=== PATIENT | female | born 1950 ===

== ENCOUNTER → 2022-07-04 13:07 | Outpatient (BNVA) | payer OTHER, SELFPAY | PROVIDERS: PCP Internal Medicine; Visit Provider Nurse Practitioner Family | DX: R41.3 Other amnesia (principal) | CPT/HCPCS: 99202 ==

== ENCOUNTER 2023-01-02 14:06 | Outpatient (AMB) | payer OTHER, SELFPAY ==
[2023-01-02 14:07] VITALS: BP 134/80; PULSE 86; O2SAT 100; BMI 25.7
--- NOTE | 2023-01-02 14:07 | A.OFFVIS_ITS ---
Intake Vital Signs 01/02/23 14:07 Height 4 ft 11 in Weight 127 lb 2 oz BMI 25.7 BP 134/80 Blood Pressure Location Rt brachial Position Sitting Pulse 86 Pulse Source Pulse Oximeter Pulse Oximetry (%) 100 Oxygen Delivery Method Room Air Intake Visit Reasons: 6M F/U White matter, Dementia, Anhydrosis-Confirm Intake Note: Pt presents as a 6 month f/u white matter, dementia, anhydrosis. Director Distribution Required: No Allergies loratadine [From Claritin] Allergy (Unknown, Verified 01/02/23 14:11) Rash HPI HPI Comments History of Present Illness Details 72 y/o female patient presents for follow up of cognitive impairment. Pt reports that she called for a repeat neuropsychology evaluation, and she is in waiting list and will take 7 month to schedule. 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 She still forgets dates and names but remember quicker than before. She sleeps well, and mood is more stable, not really depressed. She sees her psychiatrist q 3months. Pt currently on buspirone 15 mg BID. She can do ALDs independently, and also has housework helps. She takes care of bills and can drive. Pt report tinnnitus and followed by ENT. [facility] Medical History Carpal tunnel syndrome of right wrist Surgical History H/O cervical discectomy H/O colonoscopy H/O tubal ligation History of colposcopy History of laparoscopic-assisted vaginal hysterectomy Family History Mother HTN (hypertension) Father Stroke Family/Other Asthma Family/Other Seasonal allergies Daughter Seasonal allergies Daughter Mast cell activation Son Seasonal allergies Social History (Updated 01/02/23 @ 14:15 by Sridevi Brandt CMA) Alcohol intake: current Alcohol intake frequency: holidays/special occasions only Patient Tobacco Use Status: Never used Tobacco Review of Systems Const All systems reviewed & are unremarkable except as noted in HPI and below ENT Reports Normal hearing present Neuro Reports Normal hearing present Physical Exam Vital Signs: Last Vital Signs Pulse 86 01/02/23 14:07 BP 134/80 01/02/23 14:07 Pulse Ox 100 01/02/23 14:07 Oxygen Delivery Method Room Air 01/02/23 14:07 BMI result Body Mass Index 25.7 Const General: cooperative and anxious Nutritional Appearance: average body habitus Orientation/consciousness: patient oriented x3 Neck Neck: Yes full ROM and Yes supple Resp Effort & Inspection: normal respiratory effort and able to speak in complete sentences Neuro Other: intermittent eye brow movement. General: patient oriented x3 Cranial nerves: Yes Bilaterally intact EOM present, Yes Normal facial strength present, Yes Midline tongue present, Yes Symmetric palate elevation present, Yes Normal hearing present, Yes Ability to bilaterally rotate head present and Yes Ability to bilaterally elevate shoulders present Cognition (Neuro): normal cognition Gait exam (Neuro): Antalgic gait present Motor exam (neuro): 5/5 motor strength present throughout, Pronator motor function not present and no tremor noted Psych Appearance: grossly normal Mental Status: mental status grossly normal Speech and movement: Normal speech and movement present and Clear speech present Affect: Anxious affect present Attitude: cooperative Assessment & Plan Assessment & Plan (1) Memory loss: Code(s): R41.3 - Other amnesia Plan Advised patient to undergo repeat neuropsychology evaluation to assess her cognitive function. Encouraged patient to increase cognitive and physical activity. Advised patient to have well balanced diet. See her psychiatrist regularly for her mood. Coding Level of Care Code Est Pt Level 3 (14579) Diagnoses Memory loss R41.3
== END 2023-01-02 14:32 | disposition home or self-care (01) ==
PROVIDERS: Visit Provider Nurse Practitioner Family
DX: R41.3 Other amnesia (principal)
CPT/HCPCS: 99213

== ENCOUNTER → 2023-01-02 14:06 | Outpatient (BNVA) | payer OTHER, SELFPAY | PROVIDERS: Visit Provider Nurse Practitioner Family | DX: R41.3 Other amnesia (principal) | CPT/HCPCS: 99212 ==

== ENCOUNTER 2024-05-05 14:24 | Outpatient (AMB) | payer OTHER, SELFPAY ==
--- NOTE | 2024-05-05 14:42 | MHC.OFFVIS ---
Vital Signs 05/05/24 14:44 Height 4 ft 11 in Weight 136 lb BMI 27.5 Intake Visit Reasons: 1yr f/u White matter/Dementia/Anhydrosis Intake Note: Patient presents for 1 year follow up. Allergies loratadine [From Claritin] Allergy (Unknown, Verified 05/05/24 14:44) Rash HPI Comments Details: 72 y/o female patient presents for follow up of cognitive impairment. Interval Medical history: 09/2023 Grand-daughter was shot and killed in [place]. Pt reports that neuropsychology evaluation, did not evaluate her for cognitive mental decline. She was referred for sweating, head the neck and underarms very little. MRI was completed. 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 She still forgets dates and names but remember quicker than before. She sleeps well, goes to bed at 11:30pm wakes up at 7am, goes to her adult day care program. Mood is stable, not really depressed, but feels very sad at times, has had a lot of family trauma and deaths. Speaks to her therapist [facility] every 2 weeks for anxiety. She sees her psychiatrist q 3months for medication. Pt currently on buspirone 15 mg BID. Lyrica for numbness bilaterally hands, and tremors, carpal tunnel. RLE numbness and tingling d/t sciatica. Lower back pain, L. side, cortisone shots and PT with Physiotrist, and canvas worker 18 sessions. Continues to have pain in the neck, R>L. She can do ADLs independently, and also has help with cleaning, laundry, groceries. She takes care of bills and can drive. Apr 2024, Cataract surgery both eyes, Dr. Carlisle. Pt report tinnnitus and followed by ENT. [facility] Medical History Carpal tunnel syndrome of right wrist Surgical History H/O tubal ligation History of laparoscopic-assisted vaginal hysterectomy H/O colonoscopy History of colposcopy H/O cervical discectomy Family History Mother HTN (hypertension) Father Stroke Family/Other Asthma Family/Other Seasonal allergies Daughter Seasonal allergies Daughter Mast cell activation Son Seasonal allergies Social History Alcohol intake: current Alcohol intake frequency: holidays/special occasions only Patient Tobacco Use Status: Never used Tobacco Review of Systems Const All systems reviewed & are unremarkable except as noted in HPI and below ENT Reports Normal hearing present Neuro Reports Normal hearing present Physical Exam Vital Signs: BMI result Body Mass Index 27.5 Const General: cooperative and anxious Nutritional Appearance: average body habitus Orientation/consciousness: patient oriented x3 Neck Neck: Yes full ROM and Yes supple Resp Effort & Inspection: normal respiratory effort and able to speak in complete sentences Neuro Other: intermittent eye brow movement. General: patient oriented x3 Cranial nerves: Yes Bilaterally intact EOM present, Yes Normal facial strength present, Yes Midline tongue present, Yes Symmetric palate elevation present, Yes Normal hearing present, Yes Ability to bilaterally rotate head present and Yes Ability to bilaterally elevate shoulders present Cognition (Neuro): normal cognition Gait exam (Neuro): Antalgic gait present Motor exam (neuro): 5/5 motor strength present throughout, Pronator motor function not present and no tremor noted Psych Appearance: grossly normal Mental Status: mental status grossly normal Speech and movement: Normal speech and movement present and Clear speech present Affect: Anxious affect present Attitude: cooperative Results Reviewed Results Reviewed: Neurocognitive Testing Report - Patient does not have Alzheimers dementia. PTSD Trauma induced. Assessment & Plan Assessment & Plan (1) Memory loss: Code(s): R41.3 - Other amnesia Category: Medical (2) Neck pain on right side: Code(s): M54.2 - Cervicalgia Category: Medical Plan Will send her to PT for neck exercises, as she continues to have neck pain. Encouraged patient to increase cognitive and physical activity, continue with day program M,, , Thu. Advised patient to have well balanced diet. See her psychiatrist regularly for her mood and therapist weekly. Orders: Orders PT Evaluation and Treatment Today M54.2 - Cervicalgia Coding Level of Care Code Est Pt Level 3 (10630) Diagnoses Memory loss R41.3 Neck pain on right side M54.2
[2024-05-05 14:44] VITALS: BMI 27.5
== END 2024-05-05 15:27 | disposition home or self-care (01) ==
PROVIDERS: PCP Internal Medicine; Visit Provider Physician Assistant Medical
DX: R41.3 Other amnesia (principal); M54.2 Cervicalgia
CPT/HCPCS: 99213

== ENCOUNTER → 2024-05-05 14:24 | Outpatient (BNVA) | payer OTHER, SELFPAY | PROVIDERS: PCP Internal Medicine; Visit Provider Physician Assistant Medical | DX: R41.3 Other amnesia (principal); M54.2 Cervicalgia | CPT/HCPCS: 99212 ==